=== PATIENT | female | born 1965 | race Caucasian/White ===

== ENCOUNTER 2021-05-14 09:21 | Emergency (ER) | payer BC ==
--- NOTE | 2021-05-14 11:13 | RAD REPORT ---
EXAM DESCRIPTION: USExtremity Venous Uni Ltd05/14/2021 11:04 am CLINICAL HISTORY: Left leg swelling. COMPARISON: None. FINDINGS: Left common femoral, superficial femoral, popliteal and posterior tibial veins are compre ssible and demonstrate augmentation. Doppler demonstrates good flow. IMPRESSION: No evidence of deep venous thrombosis involving the left lower extremity.
--- NOTE | 2021-05-14 11:55 | RAD REPORT ---
EXAM DESCRIPTION: CT - Abdomen Pelvis W Contrast - 05/14/2021 11:21 am CLINICAL HISTORY: Abdominal pain COMPARISON: none. TECHNIQUE: Computed axial tomography of the abdomen pelvis was obtained. 100 cc Isovue-300 was admin istered intravenously. Oral contrast was not requested which limits evaluation of bowel. All CT scans are performed using dose optimization technique as appropriate and may include automated exposure control or mA/KV adjustment according to patient size. FINDINGS: Tiny hepatic cyst. Spleen, pancreas, adrenals and left kidney unremarkable. Small right renal calculi. No hydronephrosis. Right renal cortical thinning. Small renal cyst. There is no evidence of diverticulitis. Normal appendix. Hysterectomy. No adnexal mass seen. Tiny umbilical hernia IMPRESSION: Small nonobstructing right renal calculi. Right renal cortical thinning may be secondary to prior inflammation
[2021-05-14 11:56] LABS: Albumin 4.1 g/dL (3.4-5.0); Bilirubin Direct 0.1 mg/dL (0-0.2); Bilirubin Total 0.4 mg/dL (0.2-1.0)
--- NOTE | 2021-05-14 12:06 | RAD REPORT ---
EXAM DESCRIPTION: US - Abdomen Exam Limited - 05/14/2021 10:40 am CLINICAL HISTORY: Abdominal pain. COMPARISON: None. FINDINGS: Small echogenic structures within the gallbladder neck. No posterior shadowing visualized. The gallbladder is mildly contracted. Gallbladder wall upper limits normal thickness The biliary tree is normal caliber. IMPRESSION: Small echogenic structures in the gallbladder neck may represent stones which did not sh adow secondary to technical factors or sludge balls
[2021-05-14 15:41] LABS: Absolute Lymphocytes (CBC) 2.7 K/uL (0.7-4.9); Basophils % 1.4 % (0-1.3); Hematocrit 38.4 % (36.0-45.0); Lymphocytes % 37.3 % (15.3-44.8); MPV 8.3 fL (7.6-11.3); RBC Red Blood Cell Count 4.18 M/uL (3.86-4.86)
[2021-05-14 15:50] LABS: Potassium 3.9 mmol/L (3.5-5.1)
[2021-05-14] MEDS ORDERED: CIPROFLOXACIN HCL 500 MG TAB ONE (15:59)
--- NOTE | 2021-05-14 16:22 | ER ---
Nurse's Notes [facility] Name: Mell Winchester Age: 55 yrs Sex: Female : 1965 Arrival Date: 05/14/2021 Time: 09:23 Bed 3 Private MD: None, None Diagnosis: Local infection of the skin and subcutaneous tissue, unspecified;Nausea Presentation: 05/14 15:16 Chief complaint: Patient states: lower back pain, nausea, left lower leg swelling with aa5 redness. 15:16 Coronavirus screen: At this time, the client does not indicate any symptoms associated aa5 with coronavirus-19. Ebola Screen: Patient negative for fever greater than or equal to 101.5 degrees Fahrenheit, and additional compatible Ebola Virus Disease symptoms. Initial Sepsis Screen: Does the patient meet any 2 criteria? No. Patient's initial sepsis screen is negative. Does the patient have a suspected source of infection? Yes:. Risk Assessment: Do you want to hurt yourself or someone else? Patient reports no desire to harm self or others. Onset of symptoms was May 2021. 15:16 Acuity: MASSIEL 3 aa5 15:16 Method Of Arrival: Ambulatory aa5 Triage Assessment: 16:00 GI: Reports lower abdominal pain, upper abdominal pain. iw 16:24 General: Appears in no apparent distress. comfortable, Behavior is calm, cooperative. iw Pain: Complains of pain in abdomen. Historical: - Allergies: 15:16 No Known Allergies; aa5 - Home Meds: 15:16 None [Active]; aa5 - PMHx: 15:16 None; aa5 Screenin:24 Abuse screen: Denies threats or abuse. Denies injuries from another. Nutritional iw screening: No deficits noted. Tuberculosis screening: No symptoms or risk factors identified. Fall Risk None identified. Assessment: 16:24 Reassessment: Patient appears in no apparent distress at this time. Patient and/or iw family updated on plan of care and expected duration. Pain level reassessed. Patient is alert, oriented x 3, equal unlabored respirations, skin warm/dry/pink. 16:24 GI: Abdomen is non-distended. iw Vital Signs: 15:16 BP 141 / 76; Pulse 64; Resp 18 S; Temp 98.4(O); Pulse Ox 100% on R/A; Weight 92.99 kg aa5 (R); Height 5 ft. 4 in. (162.56 cm) (R); 15:16 Body Mass Index 35.19 (92.99 kg, 162.56 cm) aa5 ED Course: 09:23 Patient arrived in ED. as 09:23 None, None is Private Physician. as 09:30 Vamsi White MD is Attending Physician. kdr 10:36 US Abdomen Limited In Process Unspecified. EDMS 11:04 US Extremity Venous Unilateral Ltd In Process Unspecified. EDMS 11:21 CT Abd/Pelvis - IV Contrast Only In Process Unspecified. EDMS 15:00 Inserted saline lock: 22 gauge in left forearm, using aseptic technique. iw 15:16 Arm band placed on Patient placed in an exam room, on a stretcher. aa5 15:22 Bethany Constantino, RN is Primary Nurse. iw 15:28 Triage completed. aa5 16:24 No provider procedures requiring assistance completed. iw 16:25 Patient has correct armband on for positive identification. iw 16:25 IV discontinued, intact, bleeding controlled, No redness/swelling at site. Pressure iw dressing applied. Administered Medications: 10:12 CANCELLED (per Dr. Ponce): Meclizine 25 mg PO once hb 16:00 Drug: Cipro (ciprofloxacin) 500 mg Route: PO; aa5 16:25 Follow up: Response: No adverse reaction iw Outcome: 16:22 Discharge ordered by . felipe 16:24 Discharged to home ambulatory, with friend. iw 16:24 Condition: good 16:24 Discharge instructions given to patient, Instructed on discharge instructions, follow iw up and referral plans. medication usage, Demonstrated understanding of instructions, follow-up care, medications, Prescriptions given X 2. 16:26 Patient left the ED. iw Signatures: Dispatcher [employer] EDSD Vamsi White MD MD kdr Martinez, Amelia as Bethany Constantino, RN RN Chery Butterfield RN RN aa5 Layton Mccarthy PA PA jr8 Morenita Parsons RN RN kg Sinai Bowen RN Corrections: (The following items were deleted from the chart) 15:16 10:49 Patient left the ED. kg aa5
--- NOTE | 2021-05-14 16:22 | EDPHYS ---
Physician Documentation [facility] Name: Mell Winchester Age: 55 yrs Sex: Female : 1965 Arrival Date: 05/14/2021 Time: 09:23 Bed 3 Private MD: None, None ED Physician Vamsi White Historical: - Allergies: 05/14 15:16 No Known Allergies; aa5 - Home Meds: 15:16 None [Active]; aa5 - PMHx: 15:16 None; aa5 Vital Signs: 15:16 BP 141 / 76; Pulse 64; Resp 18 S; Temp 98.4(O); Pulse Ox 100% on R/A; Weight 92.99 kg aa5 (R); Height 5 ft. 4 in. (162.56 cm) (R); 15:16 Body Mass Index 35.19 (92.99 kg, 162.56 cm) aa5 MDM: 16:22 Patient medically screened. jr8 05/14 09:41 Order name: CBC with Diff; Complete Time: 16:18 kdr 05/14 09:41 Order name: Chem 7; Complete Time: 16:18 kdr 05/14 10:13 Order name: Hepatic Function; Complete Time: 15:31 kdr 05/14 10:13 Order name: Lipase; Complete Time: 15:31 kdr 05/14 10:15 Order name: CT Abd/Pelvis - IV Contrast Only; Complete Time: 15:31 kdr 05/14 10:15 Order name: Blood Culture Adult (2) kdr 05/14 10:13 Order name: IV Saline Lock; Complete Time: 15:26 kdr 05/14 10:13 Order name: Labs collected and sent; Complete Time: 15:26 kdr 05/14 10:15 Order name: Extremity Venous Unilateral Ltd; Complete Time: 15:31 kdr 05/14 10:15 Order name: Abdomen Limited; Complete Time: 15:31 kdr Administered Medications: 10:12 CANCELLED (per Dr. Ponce): Meclizine 25 mg PO once hb 16:00 Drug: Cipro (ciprofloxacin) 500 mg Route: PO; aa5 16:25 Follow up: Response: No adverse reaction iw Disposition Summary: 05/14/21 16:22 Discharge Ordered Location: Home jr8 Problem: new jr8 Symptoms: have improved jr8 Condition: Stable jr8 Diagnosis - Local infection of the skin and subcutaneous tissue, unspecified jr8 - Nausea jr8 Followup: jr8 - With: Private Physician - When: 2 - 3 days - Reason: Recheck today's complaints, Continuance of care, Re-evaluation by your physician Discharge Instructions: - Discharge Summary Sheet jr8 - Cellulitis, Adult jr8 - Nausea, Adult jr8 Forms: - Medication Reconciliation Form jr8 - Thank You Letter jr8 - Antibiotic Education jr8 - Prescription Opioid Use jr8 Prescriptions: - Zofran 4 mg Oral Tablet - take 1 tablet by ORAL route every 12 hours As needed; 20 tablet; Refills: 0, jr8 Product Selection Permitted - Bactrim DS 800-160 mg Oral Tablet - take 1 tablet by ORAL route every 12 hours for 10 days; 20 tablet; Refills: 0, jr8 Product Selection Permitted Signatures: Dispatcher [employer] EDVamsi Leonard MD MD [facility] Chery Butterfield RN RN aa5 Layton Mccarthy PA PA jr8 Sinai Bowen RN RN Morenita Parsons RN RN kg Bethany Constantino RN Corrections: (The following items were deleted from the chart) 10:12 09:41 Meclizine 25 mg PO once ordered. kdr hb 15:16 10:49 Before Triage kg aa5 15:16 10:49 unknown kg aa5
[2021-05-14 17:02] VITALS: BP 141/76; TEMP 98.4; O2SAT 100
== END 2021-05-14 16:26 | disposition home or self-care (01) ==
LOC: ER 09:21
DX: L08.9 Local infection of the skin and subcutaneous tissue, unspecified (principal); R11.0 Nausea
CPT/HCPCS: 87040 ×2; 85025; 80048; 36415; 82565; 80076; 83690; 74177; 93971; 76705; 99284; Q9967

== ENCOUNTER 2021-08-09 08:46 | Day surgery (SDC) | payer BC ==
[2021-08-05 10:59] LABS: Absolute Lymphocytes (CBC) 1.8 K/uL (0.7-4.9); Basophils % 0.8 % (0-1.3); Hematocrit 38.1 % (36.0-45.0); Lymphocytes % 40.5 % (15.3-44.8); MPV 7.6 fL (7.6-11.3); RBC Red Blood Cell Count 4.19 M/uL (3.86-4.86)
[2021-08-05 11:24] LABS: ALT/SGPT 33 U/L (12-78); AST/SGOT 22 U/L (15-37); Albumin 3.5 g/dL (3.4-5.0); Alkaline Phosphatase 76 U/L (45-117); Amylase 39 U/L (25-115); BUN Blood Urea Nitrogen 10 mg/dL (7-18); Bicarbonate 29 mmol/L (21-32); Bilirubin Direct < 0.1 mg/dL (0-0.2); Bilirubin Total 0.3 mg/dL (0.2-1.0); Glucose Level 89 mg/dL (74-106); Lipase 149 U/L (73-393); Potassium 4.3 mmol/L (3.5-5.1); Protein, Total 7.2 g/dL (6.4-8.2); Sodium Level 144 mmol/L (136-145)
--- NOTE | 2021-08-05 11:50 | RAD REPORT ---
EXAM DESCRIPTION: RAD - Chest Pa And Lat (2 Views) - 08/05/2021 11:27 am CLINICAL HISTORY: PRE OP COMPARISON: None TECHNIQUE: Frontal and lateral views of the chest were obtained. FINDINGS: The lungs are clear. Heart size is normal and central vasculature is within normal limit s. No pleural effusion or pneumothorax seen. No acute bony finding noted. No aortic abnormality. IMPRESSION: No acute cardiopulmonary process.
[2021-08-09] MEDS ORDERED: Ringers Lactate 1,000 ML IV ONE (09:59)
[2021-08-09] MEDS ORDERED: propofoL 200 MG/20 ML VIAL IV ONE ×2 (10:39→11:42)
[2021-08-09] MEDS ORDERED: MIDAZOLAM HCL 2 MG/2 ML INJ ONE (10:39)
[2021-08-09] MEDS ORDERED: FENTANYL CITR 100 MCG/2 ML ONE (10:39)
[2021-08-09] MEDS ORDERED: LIDOCAINE 2% MPF 5 ML VIAL ONE (10:39)
[2021-08-09] MEDS ORDERED: ROCURONIUM 50 MG/5 ML VIAL IV ONE (10:40)
[2021-08-09] MEDS ORDERED: GLYCOPYRROLATE 0.2 MG/ML SYR ONE ×3 (10:41→11:48)
[2021-08-09] MEDS ORDERED: CEFOXITIN/NS 1gm 1 GM/50 ML BAG ONE (10:48)
--- NOTE | 2021-08-09 10:58 | P.BOP ---
Preoperative diagnosis: symptomatic cholelithiasis, acute cholecystitis, RUQ abd pain Postoperative diagnosis: same Primary procedure: Laparoscopic cholecystectomy Tool Builder: RICHARD REAL (EMPLOYMENT PROGRAM REPRESENTATIVE) Estimated blood loss: <10cc Specimen: gb Findings: as above Anesthesia: General Complications: None Transferred to: Recovery Room Condition: Good
[2021-08-09] MEDS ORDERED: ONDANSETRON 4 MG/2 ML VIAL ONE ×2 (11:17→12:34)
[2021-08-09] MEDS ORDERED: dexAMETHasone 10 MG/ML VIAL ONE (11:17)
[2021-08-09] MEDS ORDERED: EPHEDRINE SULF 50 MG/ML VIAL ONE (11:36)
--- NOTE | 2021-08-09 11:41 | DS ---
Diagnoses: Acute cholecystitis, symptomatic cholelithiasis, right upper quadrant abdominal pain. Procedure: Laparoscopic cholecystectomy. Disposition: Home. Activity: As tolerated. No heavy lifting. Plan: Follow up in my office in 1 week. Call for appointment at [phone]. Keep area dry for 48 wesly rs, then may shower. Keep Steri-Strip intact. Medications: Include Tylenol No.3 q.4 hours p.r.n. pain. ZURI/DIXON Voice ID: [id number] Report ID: [id number]
--- NOTE | 2021-08-09 11:41 | OP ---
Date of Procedure: 08/09/2021 Surgeon: Francesco Miller MD Shank Piece Tacker: ISSA Flowers. Preoperative Diagnoses: Symptomatic cholelithiasis, acute cholecystitis, right upper quadrant abdomi nal pain. Postoperative Diagnoses: Symptomatic cholelithiasis, acute cholecystitis, right upper quadrant abdom inal pain. Procedure: Laparoscopic cholecystectomy. Estimated Blood Loss: Less than 10 mL. Specimen: Gallbladder. Anesthesia: General plus local. Indication: This is the case of a female, who comes to us with above diagnosis. Fully explained the benefits, alternatives, and risks of laparoscopic possible open cholecystectomy, which include, but not limited to infection, bleeding, damage to adjacent structures, anesthesia complication, choledoch olithiasis, bile leak, pancreatitis, [place], and even . She also understands this may not relieve a ny symptoms. She might need more than one surgical intervention. She understood, signed a consent. The patient went to the ER several days ago and diagnosed with acute cholecystitis and sent to my of [facility] and pain continues, so she was scheduled for surgery. Procedure In Detail: The patient was brought to the operating room, placed in supine position. Anes thesia was done without complication. Abdominal area was prepped and draped in usual sterile fashion . Marcaine 0.5% was injected for local anesthetic followed by sharp incision of the skin in the supr aumbilical region. Incision was carried down to fascia, which was opened under direct vision. Perit oneum was encountered, opened under direct vision. Vicryl #1 placed inside the fascia. Saul troca r was carefully introduced. Pneumoperitoneum was obtained. I placed 3 more trocars, 5 mm each one o f them in the epigastric upper quadrant area under direct visualization. This allowed me to put a gr asper in the fundus of the gallbladder, another grasper in the infundibulum, retracting the gallbladd er in the inferolateral fashion, exposing triangle of Calot and obtaining critical view. Cystic duct and cystic artery were clearly isolated, freed circumferentially and a connection between those and the gallbladder were clearly identified. I proceeded to ligate those by using at least 3 clips proxi mal, 1 clip distal, ligation in middle. Same was done with the cystic artery. No bile leak, no blee ding. The gallbladder was removed from liver using Bovie cauterizer and removed from abdominal cavit y using an EndoCatch through the umbilical incision. The area was inspected once again. No bile alvin k. No bleeding. Clips were intact. At that moment, I proceeded to remove the trocars under direct vision. Deflated the pneumoperitoneum. Closed the fascia with #1 Vicryl. Irrigated the subcutaneou s tissue, closed that with 3-0 chromic and skin in a subcuticular fashion with 3-0 chromic and Steri- Strips on top. Sponge count and instrument counts correct. The patient tolerated the procedure well . The patient was sent to recovery in stable condition. ZURI/DIXON Voice ID: [id number] Report ID: [id number]
[2021-08-09] MEDS ORDERED: KETOROLAC 30 MG/ML INJ ONE (11:48)
[2021-08-09] MEDS ORDERED: NEOSTIGMINE 1 MG/ML -5 ML ONE (12:04)
[2021-08-09] MEDS ORDERED: HYDROMORPHONE HCL 1 MG/ML INJ ONE (12:23)
[2021-08-09] MEDS ORDERED: PROMETHAZINE INJ 25 MG/ML AMP ONE (12:24)
[2021-08-09] MEDS ORDERED: CODEINE 30MG/APAP 300MG TAB ONE (13:15)
[2021-08-09 14:15] VITALS: O2SAT 100
[2021-08-09 14:17] VITALS: BP 136/78; TEMP 98
== END 2021-08-09 12:50 | disposition home or self-care (01) ==
LOC: OR 08:46
PROVIDERS: ATTEND Surgery
PROC: 0FT44ZZ Resection of Gallbladder, Percutaneous Endoscopic Approach (ICD-10-PCS; principal; 2021-08-09 10:15)
DX: K80.10 Calculus of gallbladder with chronic cholecystitis without obstruction (principal); R10.11 Right upper quadrant pain; Z20.822 Contact with and (suspected) exposure to COVID-19
CPT/HCPCS: 93005; 85025; 80048; 36415; 82150; 80076; 88304; 83690; 71046; 47562; U0003; J2704; J2550; J2250; J3010; J1100; J1170; J2710; J7120; J0694; J2405 ×2